=== PATIENT | female | born 1990 | race Caucasian/White ===

== ENCOUNTER 2020-03-07 11:58 | Outpatient (REF) | payer BC, SELFPAY ==
--- NOTE | 2020-03-07 11:30 | PAPFT_PTH ---
PATIENT: ANNABEL REED LOC: [facility] U#:[id number] AGE/SX: 29/F ROOM: RE03/07/[address]: Mayur [place] : 1990 BED: DIS: 03/07/2020 SPEC #: [id number] RECD: 03/10/20 12:32 STATUS: PHONG RELeia #: [id number] BERENICE: 03/07/20 11:[address]: Mayur [place] DEPT: [facility] Cytology RECD BY: Cassi Gibson Tissues: 1 - CX/ENDOCX FOR PAP SMEARS Procedures: PAP THIN PREP/[facility] Screening HPV DNA PROBE Comments: [id number] (CHLAMYDIA/GC)
[2020-03-12 16:05] LABS: Chlamydia Result Negative (Negative); GC Result Negative (Negative)
== END 2020-03-07 12:18 ==
LOC: LBN 11:58
PROVIDERS: PCP Naturopath; Visit Provider Naturopath
DX: Z11.3 Encounter for screening for infections with a predominantly sexual mode of transmission (principal); Z12.4 Encounter for screening for malignant neoplasm of cervix; Z11.51 Encounter for screening for human papillomavirus (HPV); Z01.419 Encounter for gynecological examination (general) (routine) without abnormal findings
CPT/HCPCS: 87491; 87591; 88142; 87624